=== PATIENT | female | born 1975 | race Caucasian/White ===

== ENCOUNTER → 2021-11-25 | Outpatient (CLI) | payer BC | LOC: KOH-I 11-23 10:30 → CT 10:36 | DX: Z87.898 Personal history of other specified conditions (principal) | CPT/HCPCS: Q9967 ==

== ENCOUNTER → 2021-12-26 | Outpatient (CLI) | payer BC | LOC: NM 13:00 | DX: D73.89 Other diseases of spleen (principal); R19.00 Intra-abdominal and pelvic swelling, mass and lump, unspecified site | CPT/HCPCS: 78215; A9541 ==